=== PATIENT | male | born 1990 | race Caucasian/White ===

== ENCOUNTER 2020-01-24 21:00 | Emergency (ER) | payer MEDICAID ==
[~2020-01-24] VITALS: Ht 188 cm; Wt 67.5 kg
[2020-01-24 21:03] VITALS: BP 137/80
--- NOTE | 2020-01-24 21:13 | NUR ---
PROVIDED PT WITH CARBONATED DRINK TO ATTEMPT TO DISSOLVE TYLENOL TAB THAT IS STUCK
== END 2020-01-24 21:22 | disposition home or self-care (01) ==
LOC: ER 21:01
DX: T18.198A Other foreign object in esophagus causing other injury, initial encounter (principal); Y92.89 Other specified places as the place of occurrence of the external cause
CPT/HCPCS: 99281